=== PATIENT | female | born 1995 | race Caucasian/White ===

== ENCOUNTER 2018-03-11 20:31 | Emergency (ER) | payer OTHER ==
[~2018-03-11] VITALS: Ht 160 cm; Wt 72.7 kg
[2018-03-11 21:02] VITALS: Ht 160 cm; Wt 72.7 kg
[2018-03-11] MEDS ORDERED: morphine 4 MG/ML VIAL IV STA (22:21)
[2018-03-11] MEDS ORDERED: ONDANSETRON INJ 8 MG in DEXTROSE 5% 50 ML IV STA (22:21)
[2018-03-11] MEDS ORDERED: morphine 4 MG/ML VIAL IM STA (22:43)
[2018-03-11] MEDS ORDERED: ONDANSETRON (ODT) 4 MG TAB ODT STA (22:43)
--- NOTE | 2018-03-12 01:11 | ERD ---
ER Documentation Chief Complaint Chief Complaint C/O LOWER BACK PAIN, NAUSEA AND CUELLAR X1 YEAR, HX OF POLYCYSTIC KIDNEY DZ HPI This is a 22-year-old female who presents for evaluation of intermittent lower back pain. Patient states that she has had an intermittent headache for about the last year, it waxes and wanes, she has had no new or sudden onset headache, she denies fever or vomiting. She denies chest pain or shortness of breath. She has not had any dysuria. ROS All systems reviewed and are negative except as per history of present illness. Medications Home Meds No Active Prescriptions or Reported Meds Allergies Allergies: Coded Allergies: No Known Allergy (Unverified , 10/29/12) PMhx/Soc Medical and Surgical Hx: pt denies Medical Hx, pt denies Surgical Hx Hx Alcohol Use: Yes (occassional) Hx Substance Use: No Hx Tobacco Use: No Smoking Status: Never smoker Physical Exam Vitals Vital Signs Date Temp Pulse Resp B/P (MAP) Pulse Ox O2 O2 Flow FiO2 Time Delivery Rate 03/11/18 98.4 66 18 204/98 100 21:02 (133) Physical Exam Const: No acute distress Head: Atraumatic Eyes: Normal Conjunctiva ENT: Normal External Ears, Nose and Mouth. Neck: Full range of motion. No meningismus. Resp: Clear to auscultation bilaterally Cardio: Regular rate and rhythm, no murmurs Abd: Soft, non tender, non distended. Normal bowel sounds Skin: No petechiae or rashes Back: No midline or flank tenderness Ext: No cyanosis, or edema Neur: Awake and alert Psych: Normal Mood and Affect Result Diagram: 03/11/18221703/11/182216 Results 24 hrs Laboratory Tests Test 03/11/18 22:17 03/11/18 22:18 03/11/18 23:15 Sodium Level 142 mmol/L Potassium Level 4.0 mmol/L Chloride Level 100 mmol/L Carbon Dioxide Level 27 mmol/L Anion Gap 15 Blood Urea Nitrogen 14 mg/dl Creatinine 0.84 mg/dl Est Glomerular Filtrat > 60 mL/min Rate mL/min Glucose Level 115 mg/dl Calcium Level 10.1 mg/dl Total Bilirubin 0.2 mg/dl Direct Bilirubin 0.00 mg/dl Indirect Bilirubin 0.2 mg/dl Aspartate Amino Transf (AST/SGOT) 244 IU/L Alanine 62 IU/L Aminotransferase (ALT/SGPT) Alkaline Phosphatase 59 IU/L Total Protein 8.4 g/dl Albumin 4.9 g/dl Globulin 3.50 g/dl Albumin/Globulin Ratio 1.40 Lipase 107 U/L White Blood Count 7.3 10^3/ul Red Blood Count 4.17 10^6/ul Hemoglobin 12.1 g/dl Hematocrit 37.2 % Mean Corpuscular Volume 89.2 fl Mean Corpuscular Hemoglobin 29.0 pg Mean Corpuscular 32.5 g/dl Hemoglobin Concent Red Cell Distribution Width 12.8 % Platelet Count 272 10^3/UL Mean Platelet Volume 11.5 fl Immature Granulocytes % 0.100 % Neutrophils % 49.1 % Lymphocytes % 44.7 % Monocytes % 4.9 % Eosinophils % 0.7 % Basophils % 0.5 % Nucleated Red Blood Cells % 0.0 /100WBC Immature Granulocytes # 0.010 10^3/ul Neutrophils # 3.6 10^3/ul Lymphocytes # 3.3 10^3/ul Monocytes # 0.4 10^3/ul Eosinophils # 0.1 10^3/ul Basophils # 0.0 10^3/ul Nucleated Red Blood Cells # 0.0 10^3/ul Urine Color YELLOW Urine Clarity CLEAR Urine pH 5.0 Urine Specific [place] 1.024 Urine Ketones NEGATIVE mg/dL Urine Nitrite NEGATIVE mg/dL Urine Bilirubin NEGATIVE mg/dL Urine Urobilinogen 1+ mg/dL Urine Leukocyte Esterase NEGATIVE Kyle/ul Urine Hemoglobin NEGATIVE mg/dL Urine Glucose NEGATIVE mg/dL Urine Total Protein NEGATIVE mg/dl POC Beta HCG, Qualitative NEGATIVE Current Medications Medications Dose Sig/Alberto Start Time Status Last (Trade) Ordered Route PRN Stop Time Admin Dose Reason Admin Morphine 4 mg ONCE STAT 03/11/18 DC Sulfate IV 22:21 (morphine) 03/11/18 22:22 Ondansetron 54 ml @ ONCE STAT 03/11/18 DC HCl 8 200 mls/hr IV 22:21 mg/Dextrose 03/11/18 22:37 Morphine 4 mg ONCE STAT 03/11/18 DC 03/11/18 Sulfate IM 22:43 23:02 (morphine) 03/11/18 22:49 Ondansetron 4 mg ONCE STAT 03/11/18 DC 03/11/18 HCl (Zofran ODT 22:43 23:02 Odt) 03/11/18 22:49 Procedures/MDM 22-year-old female with history of polycystic kidney disease presents for lower back pain acutely, she also has intermittent headache, but this is chronic, and currently is not her main complaint. She had no sudden onset headache and no men ingeal signs. I do not suspect SAH or meningitis. She has no signs of infection. Labs and UA unremarkable. CT abdomen pelvis is pending to evaluate for renal stones or other intrabdominal pathology. Signed out to Dr. Adele Burris Diagnosis: Primary Impression: Polycystic kidney disease Additional Impressions: Acute back pain Back pain location: low back pain Back pain laterality: unspecified Sciatica presence: without sciatica Qualified Codes: M54.5 - Low back pain Hypertension Hypertension type: secondary to other renal disorders Qualified Codes: I15.1 - Hypertension secondary to other renal disorders; N28.89 - Other specified disorders of kidney and ureter Condition: SYL Corley MD Mar 12, 2018 01:11
[2018-03-12] MEDS ORDERED: LISI-471 PO (01:13)
[2018-03-12] MEDS ORDERED: AMLO5TAB4 PO (01:13)
[2018-03-12 02:05] VITALS: BP 151/88; PULSE 77; RESP 18
== END 2018-03-12 02:10 | disposition home or self-care (01) ==
LOC: E/R 20:31
DX: Q61.3 Polycystic kidney, unspecified (principal); R40.2142 Coma scale, eyes open, spontaneous, at arrival to emergency department; R40.2362 Coma scale, best motor response, obeys commands, at arrival to emergency department; R40.2252 Coma scale, best verbal response, oriented, at arrival to emergency department; I15.1 Hypertension secondary to other renal disorders; N28.89 Other specified disorders of kidney and ureter
CPT/HCPCS: 36415; 74176; 80053; 81003; 81025; 83690; 85025; 96372; J2270; J2405; Z7502; Z7610

== ENCOUNTER 2018-08-02 18:26 | Emergency (ER) | payer OTHER ==
[~2018-08-02] VITALS: Ht 160 cm; Wt 74.4 kg
[~2018-08-02 18:26] MED LIST: AMLO5TAB4 PO; LISI-471 PO
[2018-08-02 18:59] VITALS: PULSE 74; RESP 18; Ht 160 cm; Wt 74.4 kg
[2018-08-02 20:44] VITALS: BP 165/99
[2018-08-02] MEDS ORDERED: LIDOCAINE 1% (MDV) 10 ML INJ INJ STA (20:58)
[2018-08-02] MEDS ORDERED: HYDROCODONE/APAP (5/325) TAB PO ONE (21:00)
[2018-08-02] MEDS ORDERED: IBUP-1542 PO (21:45)
[2018-08-02] MEDS ORDERED: HYDR-4011 PO (21:45)
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
== END 2018-08-02 22:23 | disposition home or self-care (01) ==
LOC: FTE 18:26
DX: S91.201A Unspecified open wound of right great toe with damage to nail, initial encounter (principal); W22.01XA Walked into wall, initial encounter; Y92.9 Unspecified place or not applicable
CPT/HCPCS: 11730; Z7502; Z7610